=== PATIENT | male | born 1950 | race Hispanic/Latino ===

== ENCOUNTER → 2025-05-24 | Outpatient (CLI) | payer OTHER ==
[~2025-05-24] MED LIST: IOHEXOL 350 MG/ML 100ML INFUS..BTL IV ONE; IOHEXOL-350 50ML VIAL IV ONE
--- NOTE | 2025-05-25 00:50 | HMCIMG ---
EXAM: CTA Abdomen and Pelvis With Runoff to the Lower Extremities with Intravenous Contrast. CLINICAL HISTORY: Unspecified peripheral vascular disease. TECHNIQUE: Axial CTA images of the abdomen, pelvis and lower extremities with intravenous contrast. Three-dimensional MIP/volume rendered formations were performed. Dose reduction technique was used including one or more of the following: automated exposure control, adjustment of mA and kV according to patient size, and/or iterative reconstruction. 152 mL of intravenous contrast was administered. Total exam DLP is 2716. CONTRAST: With; 152 mL of intravenous contrast was administered. COMPARISON: None provided. FINDINGS: VASCULATURE: Aorta: The abdominal aorta demonstrates atheromatous calcification without aneurysm or dissection. Celiac trunk: No acute finding. No occlusion or significant stenosis. Superior mesenteric artery: No acute finding. No occlusion or significant stenosis. Inferior mesenteric artery: No acute finding. No occlusion or significant stenosis. Renal arteries: No acute finding. No occlusion or significant stenosis. Right iliac arteries: There are atheromatous changes in the arteries of the bilateral lower extremities. Right femoral arteries: There are atheromatous changes in the arteries of the bilateral lower extremities. Right popliteal artery: There are atheromatous changes in the arteries of the bilateral lower extremities. Right calf arteries: There are atheromatous changes in the arteries of the bilateral lower extremities. Left iliac arteries: There are atheromatous changes in the arteries of the bilateral lower extremities. Left femoral arteries: There are atheromatous changes in the arteries of the bilateral lower extremities. Left popliteal artery: There are atheromatous changes in the arteries of the bilateral lower extremities. Left calf arteries: There are atheromatous changes in the arteries of the bilateral lower extremities. Lower thorax: There is bibasilar streaky atelectasis of the lung bases. ABDOMEN: Liver: Unremarkable. No mass. Gallbladder and bile ducts: No calcified stone. No ductal dilation. Pancreas: Unremarkable. No ductal dilation. Spleen: Unremarkable. Adrenals: The both adrenals are unremarkable. Kidneys, ureters, and bladder: The kidneys enhance symmetrically. Medullary tip calcifications are present in both kidneys without karely calculus or hydronephrosis. There is a right renal cyst measuring 1.5 x 1 cm, without enhancement, consistent with Bosniak class I. Images in urographic phase demonstrate normal, symmetric contrast excretion through the bilateral renal pelvicalyceal system and ureters, without hydroureteronephrosis. No solid mass. There is diffuse thickening of the urinary bladder wall, which may represent sequelae of chronic bladder outflow obstruction. Stomach and bowel: No obstruction. No bowel wall thickening. No CT evidence of acute diverticulitis. A moderate amount of fecal material is present in the colon. There is evidence of prior sigmoid colectomy with end to end anastomosis, without anastomotic site complications. Abdominal wall and soft tissues: There is a well healed midline infraumbilical anterior abdominal wall scar present without incisional hernia. There is a right lower anterior abdominal wall scar with presence of an incisional hernia with the defect in the rectus sheath measuring 3 cm, allowing for the herniation of non-obstructed small bowel loops, the omental fat. Appendix: No CT evidence for appendicitis. The appendix is unremarkable, series 2, image 65/281. Reproductive: There is moderate prostatomegaly with periurethral calcifications. Peritoneum: No free fluid. No free air. Lymph nodes: No lymphadenopathy. Bones: No acute osseous abnormality. No areas of lucency or sclerosis in the bones to suggest osteomyelitis. There are degenerative changes in the spine. Soft tissues: The soft tissues are unremarkable. There is no focal or diffuse soft tissue thickening of the bilateral lower extremities or collection. IMPRESSION: 1. Atheromatous changes in the abdominal aorta and bilateral lower extremity arteries without stenosis, aneurysm or dissection. 2. Incisional hernia in the right lower anterior abdominal wall with a 3 cm rectus sheath defect containing non-obstructed small bowel loops and omental fat. No evidence to suggest strangulation. 3. Diffuse urinary bladder wall thickening, which may represent sequelae of chronic bladder outflow obstruction. 4. Evidence of prior sigmoid colectomy with end-to-end anastomosis, without anastomotic site complications. 5. Several stable chronic and incidental findings are noted, as detailed in the body of the report. /[place]
== END | disposition home or self-care (01) ==
LOC: RAH 07:34
PROVIDERS: ATTEND Internal Medicine
DX: I73.9 Peripheral vascular disease, unspecified (principal); I25.10 Atherosclerotic heart disease of native coronary artery without angina pectoris; I70.0 Atherosclerosis of aorta; K43.2 Incisional hernia without obstruction or gangrene; M47.816 Spondylosis without myelopathy or radiculopathy, lumbar region; N40.1 Benign prostatic hyperplasia with lower urinary tract symptoms; J98.11 Atelectasis; N32.89 Other specified disorders of bladder; Z90.49 Acquired absence of other specified parts of digestive tract
CPT/HCPCS: 75635; Q9967 ×2